=== PATIENT | female | born 1955 | race Caucasian/White ===

== ENCOUNTER 2022-10-06 10:54 | Outpatient (OUT) | payer MEDICARE, OTHER, SELFPAY ==
--- NOTE | 2022-10-06 11:20 | XR_ITS ---
The [address] [address] Patient Name: MARIKA DALAL MRN: [id number] date: 1955 Sex: F Assigned Patient Location: [facility] Current Patient Location: [facility] Accession/Order Number: [id number] Exam Date: 10/06/2022 11:30 Report Date: 10/06/2022 11:50 At the request of: DANILO MARK Procedure: XR chest 2V EXAM: XR chest 2V HISTORY: Preop Examination Z01.818 COMPARISON: None. TECHNIQUE: PA and lateral views of the chest. FINDINGS: The cardiomediastinal silhouette is normal. No focal consolidation is identified. There is no pneumothorax. No pleural effusion is noted. The osseous structures are intact. IMPRESSION: No acute cardiopulmonary process. Electronically authenticated by: CHRIS HERNANDEZ Date: 10/06/2022 11:50
== END 2022-10-06 10:55 ==
PROVIDERS: PCP Family Medicine
DX: Z01.810 Encounter for preprocedural cardiovascular examination (principal)
CPT/HCPCS: 71046